=== PATIENT | female | born 1965 | race Caucasian/White ===

== ENCOUNTER 2022-06-10 11:00 | Outpatient (CLI) | payer OTHER, SELFPAY ==
--- NOTE | ~2022-06-10 | US_ITS ---
Duplex Sonography of the right extremity: Indication: Acute embolism Findings: Sagittal and transverse B-mode images as well as color-flow imaging were performed on the r ight femoral and popliteal veins. B-mode examination was done without and with compression in the tr ansverse plane. There is good visualization of the common femoral, proximal profunda femoral, superf icial femoral, greater saphenous, and popliteal veins. Normal flow was seen on color-flow imaging. N ormal compressibility was demonstrated. Visualized right calf veins are also patent. Impression: No evidence of deep vein thrombosis involving the right lower extremity. Reviewed, dictated and finalized at location M. Impression: No evidence of deep vein thrombosis involving the right lower extremity.
== END 2022-06-10 11:01 | disposition home or self-care (01) ==
PROVIDERS: PCP Nurse Practitioner Family; Visit Provider Family Medicine
DX: I82.409 Acute embolism and thrombosis of unspecified deep veins of unspecified lower extremity (principal); Z86.718 Personal history of other venous thrombosis and embolism
CPT/HCPCS: 93971

== ENCOUNTER 2024-06-08 08:38 | Outpatient (CLI) | payer OTHER, SELFPAY ==
--- OUTSIDE RECORDS SUMMARY | 2024-06-08 09:03 | XMS_ITS | Referral Summary ---
Author Organization [address] Address [address] [place] [address] Care Team Providers Care Assistant Professor Of Music Name Role Phone Cipriano Kwok MD Primary Care Provider [phone] Beni Guerrier MD Unavailable Milvia Aldrich MD Unavailable [phone] Encounters Date Type Department Care Team Description 05/12/2024 Telephone [facility] Primary Care at [address] [address] Cipriano Kwok MD Medical Question/Miscellaneous 05/12/2024 Orders Only [facility] Medical [facility] Primary Care at [address] [address] Cipriano Kwok MD Hypersomnolence (Primary Dx) 05/12/2024 10:15 AM CDT Office Visit [facility] Primary Care at [address] [address] Cipriano Kwok MD Hypersomnolence (Primary Dx) 05/06/2024 11:15 AM CDT Office Visit [facility] Oncology [facility] [place] [address] Beni Guerrier MD Malignant neoplasm of upper-inner quadrant of right breast in female, estrogen receptor positive (HCC) (Primary Dx) from Last 3 Months Allergies No known active allergies Medications Eliquis 5 mg tablet Take 1 tablet (5 mg total) by mouth 2 (two) times a day 01/17/2023 Active vitamin E acetate (VITAMIN E ORAL) Take by mouth Active BLACK COHOSH ORAL Take by mouth Active anastrozole (ARIMIDEX) 1 mg tabletIndicatio ns:Malignant neoplasm of upper-inner quadrant of right breast in female, estrogen receptor positive (HCC) Take 1 tablet (1 mg total) by mouth daily 30 tablet 11 02/25/2024 Active ezetimibe (ZETIA) 10 mg tablet TAKE 1 TABLET(10 MG) BY MOUTH DAILY 30 tablet 3 03/29/2024 Active venlafaxine XR (EFFEXOR-XR) 75 mg 24 hr capsuleIndicati ons:Vasomotor Symptoms associated with Menopause Take 1 capsule (75 mg total) by mouth daily 30 capsule 05/06/2024 Active Active Problems Problem Noted Date Diagnosed Date Encounter for follow-up exam ination after completed treatment for malignant neoplasm 05/30/2023 Personal history of malignant neoplasm of breast 05/30/2023 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 Class 2 obesity due to exces s calories without serious comorbidity with body mass index (BMI) of 39.0 to 39.9 in adult 01/21/2023 Assessment & Plan (01/23/2023 12:49 PM WOODWORK SALVAGE INSPECTOR): BMI Follow-up includes: nutrition counseling, exercise counseling, and education provided. Malignant neoplasm of upper- inner quadrant of right breast in female, estrogen receptor positive 11/05/2022 Assessment & Plan (01/21/2023 10:08 AM WOODWORK SALVAGE INSPECTOR): Per chart review -- Right breast multifocal invasive ductal carcinoma, cT1cN0. s/P RIGHT Partial Mastectomy with sentinel lymph node biopsy, pathologic T2 N0 Under care [facility] - Dr Bg Ying and Milvia Aldrich MD Ductal carcinoma in situ (DCIS) of right breast 10/22/2022 Assessment & Plan (01/21/2023 10:09 AM WOODWORK SALVAGE INSPECTOR): 12/25/22 s/P RIGHT Partial Mastectomy with sentinel lymph node biopsy, pathologic T2 N0 Encounter to establish care 10/22/2022 Assessment & Plan (10/22/2022 9:17 AM CDT): A(n) initial well visit to establish care has been performed today. Guy White is not up to date on screening tests. She is in need of Colon cancer screening and Cholesterol screening. She is not up to date on needed preventative vaccinations; She is in need of Tdap/Td, Influenza, Zoster, and Covid-19 (booster). We discussed healthy lifestyle habits, educational material has been given. Medications reviewed, changes documented as per the medical record and discussed with patient along with risks vs benefits. 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 More than three times a week 05/05/2024 How often do you get togethe r with friends or relatives? Never 05/05/2024 How often do you attend [facility] or spiritism services? 1 to 4 times per year 05/05/2024 Do you belong to any clubs o r organizations such as mu-ism groups, unions, fraternal or athletic groups, or school groups? No 05/05/2024 How often do you attend meet ings of the clubs or organizations you belong to? Never 05/05/2024 Are you , , di vorced, , never , or living with a partner? 05/05/2024 AUDIT-C Answer Date Recorded Q1: How often do you have a drink containing alc ohol? Monthly or less 10/22/2022 Q2: How many drinks containi ng alcohol do you have on a typical day when you are drinking? 1 or 2 10/22/2022 Q3: How often do you have si x or more drinks on one occasion? Less than monthly 10/22/2022 Overall Financial Resource Strain (CARDIA) Answe r Date Recorded How hard is it for you to pa y for the very basics like food, housing, medical care, and heating? Not very hard 05/05/2024 PHQ-2 Answer Date Recorded PHQ-2 Total Score (If total score is 3 or more points, staff should administer the PHQ-9) 0 05/12/2024 [facility] ional Health - Occupational Stress Questionnaire Answer Date Recorded Do you feel stress - tense, restless, nervous, or anxious, or unable to sleep at night because your mind is troubled all the time - these days? Only a little 05/05/2024 Exercise Vital Sign Answer Date Recorde d On average, how many days pe r week do you engage in moderate to strenuous exercise (like a brisk walk)? 2 days 05/05/2024 On average, how many minutes do you engage in exercise at this level? 10 min 05/05/2024 Hunger Vital Sign Answer Date Recorded Within the past 12 months, y ou worried that your food would run out before you got the money to buy more. Never true 05/06/19 25 Within the past 12 months, t he food you bought just didn't last and you didn't have money to get more. Never true 05/05/2024 PRAPARE - Transportation Answer Date Re corded In the past 12 months, has l ack of transportation kept you from medical appointments or from getting medications? No 04/11 In the past 12 months, has l ack of transportation kept you from meetings, work, or from getting things needed for daily living? No 05/05/2024 Housing Stability Vital Sign Answer Arian e Recorded In the last 12 months, was t here a time when you were not able to pay the mortgage or rent on time? No 05/05/2024 Number of Times Moved in the Last Year Not on fi le 05/05/2024 Homeless in the Last Year Not on file 2024 Personal Safety Answer Date Recorded Have you ever been in or are you currently in a harmful physical or emotional relationship or is someone making you feel afraid or unsafe? Denies 12/25/2022 Comments No Sex and Gender Information Value Date Recorded Sex Assigned at Not on file Legal Sex Female 1:25 AM WOODWORK SALVAGE INSPECTOR Gender Identity Not on file Sexual Orientation Not on file Last Filed Vital Signs Vital Sign Reading Time Taken Comments Blood Pressure 130/84 05/12/2024 10:29 AM CDT Pulse 65 05/12/2024 10:29 AM CDT Temperature 36.1 C (96.9 F) 05/12/2024 10:29 AM CDT Respiratory Rate 16 05/12/2024 10:29 AM CDT Oxygen Saturation 98% 05/12/2024 10:29 AM CDT Inhaled Oxygen Concentration - - Weight 103.4 kg (228 lb) 05/12/2024 10:29 AM CDT Height 158.8 cm (5' 2.5 ) 05/12/2024 10:29 AM CD T Body Mass Index 41.04 05/12/2024 10:29 AM CDT Plan of Treatment Not on file Medical Devices Implanted Type Area Accounting Systems Analyst Device Identifier Shelf Expiration Date Model / Serial / Lot Well Drill Operator Technologies Cromwell 20ga 7.5cm 2 Part Stabilizer Repositionable Depth Man [id number] - [id number] Implanted:Qty: 1 on 12/25/2022 at [facility] Right: Breast Well [employer] [id number] 06/26/2027 [id number] / / [id number] Bard Peripheral Vascular Ultraclip Bard 17ga 10cm 2 Trigger Permanent Ultrasound [id number] - [id number] Implanted:Qty: 1 on 10/16/2022 by Tamiko Ledesma MD at [facility] Right: Breast Bard Peripheral Vascular [id number] / / CodeStreet Marker Tissue 1 Year Visibility Butterfly Titanium Hydrogel Hydromark 15ga 4009-03-27-T4 - [id number] Implanted:Qty: 1 on 10/16/2022 by Tamiko Ledesma MD at [facility] Right: Breast [employer] [id number] 4009-03-1 5-T4 / / [id number] Well Drill Operator Technologies Cromwell 20ga 5cm Reposition J Curve Wire Centimeter Man Stabilizer [id number] - [id number] Implanted:Qty: 1 on 12/25/2022 at [facility] [employer] Marker [id number] 07/24/2027 [id number] / / [id number] Description:To be removed du ring surgery today [employer]Street Mammostar Tissue Barbell Marker Breast Biopsy Beta Glucan Ceramic [id number] - [id number] Implanted:Qty: 1 on 08/20/2023 at [facility] [employer] [id number] 03/08/2028 [id number] / / [id number] Procedures Procedure Name Priority Date/Time Associated Diagnosis Comments DIAGNOSTIC MAMMOGRAM BILATERAL W GEOFFREY Schedule Routine, Read Routine (OP Routine) 08/04/2023 8:58 AM CDT Malignant neoplasm of upper-inner quadrant of right breast in female, estrogen receptor positive (HCC) HEPATITIS C ANTIBODY Routine 10/22/2022 9:34 AM CDT Encounter for hepatitis C screening test for low risk patient from Last 3 Months or Most Recently Relevant to Health Maintenance Results * (ABNORMAL) Diagnostic Mammogram Bilateral W Geoffrey (08/04/2023 8:58 AM CDT) Anatomical Region Laterality Modality Breast Bilateral Mammography 08/04/2023 9:32 AM CDT Impressions 08/04/2023 9:32 AM CDT 1. Group of microcalcifications located in the central superior right breast are indeterminate. Recommend stereotactic biopsy. 2. Lumpectomy changes in the right breast are benign. 3. Management of any palpable abnormality should be based on clinical grounds. These findings were discussed with the patient and all her questions were answered. The patient will follow-up with our nurse navigator who will assist in further management OVERALL FINAL ASSESSMENT: SUSPICIOUS. BI-RADS Category 4A: Low suspicion for malignancy. RECOMMENDATION: Stereotactic biopsy of group of microcalcifications in the right superior central breast. Electronically signed by: Lynn Hermosillo M.D. Narrative 08/04/2023 9:32 AM CDT EXAMINATION: BILATERAL DIGITAL DIAGNOSTIC MAMMOGRAM INCLUDING CAD AND BILATERAL DIGITAL BREAST TOMOSYNTHESIS HISTORY: Annual mammogram. Right lumpectomy in December 2022 COMPARISON: Multiple prior exams dating back to 07/22/2022 TECHNIQUE: Full field digital mammographic views of BOTH breasts were performed, including computer aided detection (CAD) and BILATERAL digital breast tomosynthesis (DBT). BREAST PARENCHYMAL COMPOSITION: There are scattered areas of fibroglandular density. MAMMOGRAM FINDINGS: Right breast: There are lumpectomy changes in the upper inner right breast. There is a group of microcalcifications located in the central superior right breast. Recommend stereotactic biopsy. Left breast: No suspicious microcalcifications masses or areas of architectural distortion. us Elvira Garcia MD PhD IMG MAMMO PROCEDURES Final Result * Hepatitis C antibody Blood (10/22/2022 9:34 AM CDT) Hep C Ab Nonreactive Nonreactive Comment: Interpretive Data Nonreactive: Antibodies to HCV not detected. Does NOT exclude the possibility of recent exposure to HCV. Equivocal: Equivocal for HCV antibodies. Supplemental molecular testing will be automatically performed to determine infection status in accordance with current CDC screening recommendations. Reactive: Positive for HCV antibodies. This may represent current or past HCV infection. Supplemental molecular testing will be automatically performed to determine current infection status in accordance with current CDC screening recommendations. Interpretive data was last revised on 2019. Blood 10/22/2022 9:34 AM CDT 10/22/2022 2:15 PM CDT us Cipriano Kwok MD LAB MICROBIOLOGY - GENERAL [place] [id number] [address] Department [place] [address] from Last 3 Months or Most Recently Relevant to Health Maintenance Insurance [facility] CHOICE [facility]US [facility] CHOICE PLUS Care Teams Assistant Professor Of Music Relationship Specialty Start Date End Date Cipriano Kwok MD [address] [place] [address] PCP - General Family Medicine 10/07/22 Beni Guerrier MD [address] [place] [address] Consulting Physician Medical Oncology 10/25/22 Milvia Aldrich MD [address] [place] [address] Radiation Oncologist Radiation Oncology 03/20/23
--- OUTSIDE RECORDS SUMMARY | 2024-06-08 09:03 | XMS_ITS | Encounter Summary ---
Author Organization [facility] Address [facility] [place] [address] Care Team Providers Care Corporate Scheduler Name Role Phone None, Provider Primary Care Provider Carson Kruger MD Primary Care Provider [phone] Encounter Details Date Type Department Care Team (Late st Contact Info) Description 04/26/2013 Abstract [facility] CONVERSION [address] [place] [address] , Generic Conversion, Social History Tobacco Use Types Packs/Day Years Used Date Smoking Tobacco: Never Assessed Comments Unknown Sex and Gender Information Value Date Recorded Sex Assigned at Not on file Legal Sex Female 7:02 PM CDT Gender Identity Not on file Sexual Orientation Not on file documented as of this encounter Plan of Treatment Not on file documented as of this encounter Visit Diagnoses Not on filedocumented in this encounter Care Teams Corporate Scheduler Relationship Specialty Start Date End Date None, Provider, PCP - General 05/21/20 07/21/22 Carson Shaw MD [address] [place] [address] PCP - General FAMILY PRACTICE 07/22/22 documented as of this encounter
--- OUTSIDE RECORDS SUMMARY | 2024-06-08 09:03 | XMS_ITS | Clinical Summary ---
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 Class 2 obesity due to exces s calories without serious comorbidity with body mass index (BMI) of 39.0 to 39.9 in adult 01/21/2023 Assessment & Plan (01/23/2023 12:49 PM CELL REPAIRER): BMI Follow-up includes: nutrition counseling, exercise counseling, and education provided. Malignant neoplasm of upper- inner quadrant of right breast in female, estrogen receptor positive 11/05/2022 Assessment & Plan (01/21/2023 10:08 AM CELL REPAIRER): Per chart review -- Right breast multifocal invasive ductal carcinoma, cT1cN0. 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 Encounters Date Type Department Care Team Description 05/12/2024 10:15 AM CDT Office Visit [facility] Medical [facility] Primary Care at [address] [address] Cipriano Kwok MD Hypersomnolence (Primary Dx) 05/12/2024 Telephone [facility] Primary Care at [address] [address] Cipriano Kwok MD Medical Question/Miscellaneous 05/12/2024 Orders Only [facility] Primary Care at [address] [address] Cipriano Kwok MD Hypersomnolence (Primary Dx) 05/06/2024 11:15 AM CDT Office Visit [facility] Oncology [facility] [place] [address] Beni Guerrier MD Malignant neoplasm of upper-inner quadrant of right breast in female, estrogen receptor positive (HCC) (Primary Dx) from Last 3 Months Immunizations Immunization Administration Dates Next Due Influenza, Quadrivalent, Spl it, Preservative Free, Intramuscular 10/22/2022 Influenza, Unspecified 02/10/2022(Deferred: Emy ent Refused) Tdap 10/22/2022 Surgical History Surgery Date Site/Laterality Comments BREAST BIOPSY 10/16/2022 Right VARICOSE VEIN SURGERY 02/10/1997 - 02/09/1998 Bilateral FRACTURE SURGERY Left HYSTERECTOMY BLADDER SURGERY Bladder lift KNEE ARTHROSCOPY W/ LATERAL RELEASE BREAST BIOPSY 08/20/2023 Right Medical History Medical History Date Comments Varicose vein of leg Cancer (HCC) Nov 02 Family History Medical History Relation Name Comments Atrial fibrillation Brother 1 Atrial fibrillation Brother 2 Clotting disorder Brother 3 Сергей Hearing loss Brother 3 Сергей HPV Daughter Lung cancer Father Clotting disorder Mother Lollyrupa Caraballo Hearing loss Mother Lolly Caraballo No Known Problems Sister Relation Name Status Comments Brother 1 Alive Brother 2 Alive Brother 3 Сергей Daughter Father Mother Lolly Caraballo Alive Sister Alive Social History Tobacco Use Types Packs/Day Years [...] Never 05/05/2024 How often do you attend chur ch or scientology services? 1 to 4 times per year 05/05/2024 Do you belong to any clubs o r organizations such as samaritan groups, unions, fraternal or athletic groups, or [...] staff should administer the PHQ-9) 0 05/12/2024 [facility] of Occupat ional Health - Occupational Stress [...] on file Legal Sex Female 1:25 AM CELL REPAIRER Gender Identity Not on file Sexual Orientation Not on file Obstetrics History Last Filed Vital Signs Vital Sign Reading [...] 05/12/2024 10:29 AM CDT Plan of Treatment Health Maintenance Due Date Last Done Comments Hepatitis B Screening 07/15/1981 Pneumococcal vaccine <65 (1 of 2 - PCV) 07/15/1982 Zoster Vaccine (1 of 2) 07/15/1982 Regular Well Visit/Exam 18-64 10/23/2023 10/22/2022 Breast Cancer Screening-Mammogram 08/03/2024 08/04/2023, 08/28/2022, 07/22/2022 Influenza Vaccine (Season Ended) 2024 10/23/19 23 Depression Screening 05/12/2025 05/12/2024, 05/06/2024, 07/24/2023, Additional history exists Colon Cancer Screening-Colonoscopy 06/30/2025 DTaP/Tdap/Td Vaccine (2 - Td or Tdap) 10/22/2032 10/22/2022 Covid-19 Vaccine Discontinued 04/29/2021, , 09/02/2020 Hepatitis C Screening Completed 10/22/2022 Medical Devices Implanted Type Area Dry Mixer Device Identifier Shelf Expiration Date Model / Serial / Lot Edge Banding Machine [employer] Sullivan 20ga 7.5cm 2 Part Stabilizer Repositionable Depth Man [id number] - [id number] Implanted:Qty: 1 on 12/25/2022 at [facility] Right: Breast Edge Banding Machine [employer] [id number] 06/26/2027 [id number] / / [id number] Bard Peripheral Vascular Ultraclip Bard 17ga 10cm 2 Trigger Permanent Ultrasound [id number] - [id number] Implanted:Qty: 1 on 10/16/2022 by Tamiko Ledesma MD at [facility] Right: Breast Bard Peripheral Vascular [id number] / / [employer] Marker Tissue 1 Year Visibility Butterfly Titanium Hydrogel Hydromark 15ga 4009-03-27-T4 - [id number] Implanted:Qty: 1 on 10/16/2022 by Tamiko Ledesma MD at [facility] Right: Breast [employer] [id number] 4009-03-1 5-T4 / / [id number] [employer] Sullivan 20ga 5cm Reposition J Curve Wire Centimeter Man Stabilizer [id number] - [id number] Implanted:Qty: 1 on 12/25/2022 at [facility] [place] [id number] 07/24/2027 [id number] / / [id number] Description:To be removed du ring surgery today [employer] Mammostar Tissue Barbell Marker Breast Biopsy Beta Glucan Ceramic [id number] - [id number] Implanted:Qty: 1 on 08/20/2023 at [facility] [employer] [id number] 03/08/2028 [id number] / / [id number] Procedures Procedure Name Priority Date/Time Associated Diagnosis [...] LAB MICROBIOLOGY - GENERAL ORDERABLES Final Result [facility] [address] Department [place] [address] from Last 3 Months or Most Recently Relevant to Health Maintenance Insurance [facility] CHOICE PLUS [facility] HMO/PPO Address: [address] [place] [address] [facility] CHOICE PLUS [facility] HMO/PPO Address: [address] [place] [address] Care Teams Link Assembler Relationship Specialty Start Date End Date Cipriano Kwok MD [address] [address] PCP - General Family Medicine 10/07/22 Beni Guerrier MD [address] [place] [address] Consulting Physician Medical Oncology 10/25/22 Milvia Aldrich MD [address] [place] [address] Radiation Oncologist Radiation Oncology 03/20/23
--- OUTSIDE RECORDS SUMMARY | 2024-06-08 09:03 | XMS_ITS | CONTINUITY OF CARE DOCUMENT ---
Author Name laura kirklizette Address Unknown Organization [facility] Address [address] [place] [address] Phone [phone] Care Team Providers Care Violin Maker Hand Name Role Phone Arian DE PAZ, Christoph Unavailable [phone] FORTINO DE PAZ, AGUEDA Unavailable [phone] AGUEDA FREITAS MD Unavailable PROBLEMS Condition Status Date Provider Notes Cardiology examination completed - Christoph Don MD Venous insufficiency active Angelina A Steel e CREDIT AND LOAN COLLECTIONS SUPERVISOR Hypercholesterolemia active Angelina A Steel e CREDIT AND LOAN COLLECTIONS SUPERVISOR DVT active Christoph Don MD HTN essential active Christoph Don MD ENCOUNTERS Date Type Provider Location Encounter Diag nosis 3 - 4 In-person encounter Office Visit Christoph Germain Office 4 - 8 In-person encounter Office Visit Christoph Germain Office 0 - 5 In-person encounter Office Visit Christoph Daniel Office Cardiology examinationDVTHTN essential 0 - 1 In-person encounter Office Visit Christoph Daniel [facility] Venous insufficiencyHypercholesterolemia VITAL SIGNS Date Observation Value Provider Body Mass Index (Ratio) 41.51 kg/m2 Jewels Don MD blood pressure, diastolic 86 mm[Hg] Li nkLogic blood pressure, systolic 135 mm[Hg] Tati Colemanogic blood pressure, diastolic 86 mm[Hg] Sarahi boyle Ruple blood pressure, systolic 135 mm[Hg] Aislinn durand Ruple blood pressure, cuff size regular Sarahi boyle Ruple oxygen saturation, oximetry 99 % Comfort Ruple pulse rate 82 /min Comfort Ruple weight E&M 227 [lb_av] Comfort Ruple height E&M 62 [in_i] Comfort Ruple Body Mass Index (Ratio) 41.70 kg/m2 Sund tahira Don MD blood pressure, cuff size regular Ke rri Gruenenfelder blood pressure, diastolic 80 mm[Hg] Ke rri Gruenenfelder blood pressure, systolic 126 mm[Hg] Lucy ri Mendozauenenfelder oxygen saturation, oximetry 96 % Angella Grnatenenfelder respiratory rate E&M 12 /min Angella G ruenenfelder pulse rate 68 /min Angella Gruenenfe lder weight E&M 228 [lb_av] Angella Gruenenfe lder height E&M 62 [in_i] Angella Busternenfe lder Body Mass Index (Ratio) 40.49 kg/m2 Sund tahira Don MD pulse rate 53 /min Jennifer Richardson blood pressure, diastolic 93 mm[Hg] Em elsie Richardson blood pressure, systolic 142 mm[Hg] Elba ly Richardson oxygen saturation, oximetry 99 % Jennifer Richardson weight E&M 221.4 [lb_av] Jennifer Richardson blood pressure, cuff size regular Em elsie Richardson height E&M 62 [in_i] Jennifer Richardson Body Mass Index (Ratio) 40.60 kg/m2 eeelham Don MD blood pressure, diastolic 84 mm[Hg] Li nkLogic blood pressure, systolic 147 mm[Hg] Tati kLogic blood pressure, diastolic 84 mm[Hg] Dolly lebron Rico blood pressure, systolic 147 mm[Hg] Otis chiu Rico oxygen saturation, oximetry 96 % Mariana Gómez pulse rate 90 /min Mariana rodriguez weight E&M 222 [lb_av] Mariana rodriguez height E&M 62 [in_i] Mariana rodriguez respiratory rate E&M 16 /min Karrie Gómez blood pressure, cuff size large Dolly Gómez HISTORY OF MEDICATION USE Medication Status Instructions Dates Provider Indications Com ments Eliquis 5 mg tablet active TAKE 1 TABLET BY MOUTH TWICE DAILY Milvia Rushijen anastrozole 1 mg tablet active take 1 pill a day Angella Kaur Eliquis 5 mg tablet completed Take 1 tablet by mouth twice a day - Milvia Rushijen ezetimibe 10 mg tablet active Take 1 tablet by mouth once daily Angella Kaur SOCIAL HISTORY Date Observation Value Provider smoking status Never smoker Jennifer Richardson smoking status Never smoker Mariana Fields and INSURANCE PROVIDERS Payer name Policy type / Coverage type [place] [employer] party ID [facility] Other [id number] ADVANCE DIRECTIVES Name Date DISCUSSED - NO DECISION MADE TREATMENT PLAN Date Name Performer Cardiology:She c/o P ain behing left knee and this is bothering her more now. Pain same as what happened with RLE and she thinks she may have a dvt in rle. Has been on oac. Also c/o white coloration in rle toes. She states that it hurts to flex knee and happened after nav[place] trip Christophelham Don MD Cardiology: H er updated medication list for this problem includes: Ezetimibe 10 Mg Tablet (Ezetimibe) ..... Take 1 tablet by mouth once daily Arian DE PAZ Cardiology:resolved r emains on oac Arian DE PAZ Cardiology:wc Arian DE PAZ Cardiology: O ff sttains at thiss time f elt legs got worse on statins C an check CACS to see if she needs statins Angelina Encarnacion NP Cardiology: H er Doppler showed occlusive DVT in the R PTV, bilateral GSV. No DVT in LLE. Had LE and blateral SSV CVI. S he was started on eliquis 5mg BID. U sing compressions tockings repeat doppler now shows no DVT (08/18/2023) Angelina Encarnacion NP Cardiology: B P today: 126/80 P rior BP: 142/93 (01/29/2023) Angelina Encarnacion NP Cardiology: h as hx of vein stripping bilaterally n ow with pain and swelling in the right > Left - w as diagnosed with DVT and has now been on eliquis of 6 months, and repeat doppler shows no DVT and now ready to see if she can be evaluated for vein treatment. Continues to wear her compression stockings. will treat her Right GSV with varithena if she decides that is what she wants to do. Angelina Encarnacion NP Cardiology:She will start monitoringat home Arian DE PAZ Cardiology:Off sttai ns at thiss time f elt legs got worse on statins C an check CACS to see if she needs statins Arian DE PAZ Cardiology:Her Doppl er showed occlusive DVT in the R PTV, bilateral GSV. No DVT in LLE. Had LE and blateral SSV CVI. S he was started on eliquis 5mg BID. U sing compressions tockings w ill follow up in 6 mo with doppler Arian DE PAZ Cardiology:no longer on statin therapy o n ezetimibe Arian DE PAZ Cardiology:has hx of vein stripping bilaterally n ow with pain and swelling in the right > Left Arian DE PAZ Date Name Venous Doppler Unila teral LLE CT, Coronary Calcium Score Venous Doppler Bilat eral LE - Reflux Venous Doppler Bilat eral LE - Reflux HISTORY OF PROCEDURES Procedure Date Procedure Name Provider Procedure Notes S tatus Complex e/m visit add on Arian DE PAZ completed EKG Arian DE PAZ completed Complex e/m visit add on Arian DE PAZ completed EKG Arian DE PAZ completed
--- OUTSIDE RECORDS SUMMARY | 2024-06-08 09:03 | XMS_ITS | Encounter Summary ---
Author Organization [facility] Healthcare Address [address] [place] [address] Care Team Providers Care Computerized Mill Mill Recorder Name Role Phone Cipriano Kwok MD Primary Care Provider Beni Guerrier MD Unavailable Milvia Aldrich MD Unavailable [phone] Reason for Visit * Reason Onset Date Comments Medical Question/Miscellaneous 05/12/2024 Encounter Details Date Type Department Care Team (Late st Contact Info) Description 05/12/[address] [facility] Medical Group Primary Care at [address] [id number] Cipriano Kwok MD [address] [place] [id number] Medical Question/Miscellaneous Social History Tobacco Use Types Packs/Day Years Used Date Smoking Tobacco: Never Passive Smoke Exposure: Never Smokeless Tobacco: Never Social Connection and Isolat ion Panel [NHANES] Answer Date Recorded In a typical week, how many times do you talk on the phone with family, friends, or neighbors? More than three times a week 05/05/2024 How often do you get togethe r with friends or relatives? Never 05/05/2024 How often do you attend chur or congregational services? 1 to 4 times per year 05/05/2024 Do you belong to any clubs o r organizations such as taoism groups, unions, fraternal or athletic groups, or [...] staff should administer the PHQ-9) 0 05/12/2024 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 * Telephone Encounter - Astrid Aaron - 05/12/2024 2:37 PM CDT Medical Question/Miscellaneous Caller???s Concern: Zulay with [facility], called needing the office visit note that discusses the patient's sleep issues and the authorization. Please fax to: [phone] Does message need to be routed? Yes-Action Needed documented in this encounter Plan of Treatment Not on file documented as of this encounter Visit Diagnoses Not on filedocumented in this encounter Care Teams Computerized Mill Mill Recorder Relationship Specialty Start Date End Date Cipriano Kwok MD [address] [facility] [address] [place] [address] PCP - General Family Medicine 10/07/22 Beni Guerrier MD [address] [place] [address] Consulting Physician Medical Oncology 10/25/22 Milvia Aldrich MD [address] [facility] [place] [address] Radiation Oncologist Radiation Oncology 03/20/23 documented as of this encounter
--- OUTSIDE RECORDS SUMMARY | 2024-06-08 09:03 | XMS_ITS ---
Author Organization [facility] [address] Address [address] [place] [id number] Care Team Providers Care Unit Control Worker Name Role Phone Cipriano Kwok MD Primary Care Provider Beni Guerrier MD Unavailable Milvia Aldrich MD Unavailable Active Problems Problem Noted Date Diagnosed Date Encounter for follow-up exam ination after completed treatment for malignant neoplasm 05/30/2023 Personal history of malignant neoplasm of breast 05/30/2023 Personal history of irradiation 05/30/2023 prison current use of aromatase inhibitor Hyperlipidemia, unspecified 01/21/2023 Pre-diabetes 01/21/2023 Morbid (severe) obesity due to excess calories 1 03/24/2022 Assessment & Plan (03/24/2023 12:59 PM INDUSTRIAL EDITOR): BMI Follow-up includes: education provided. Class 2 obesity due to exces s calories without serious comorbidity with body mass index (BMI) of 39.0 to 39.9 in adult 01/21/2023 Assessment & Plan (01/23/2023 12:49 PM INDUSTRIAL EDITOR): BMI Follow-up includes: nutrition counseling, exercise counseling, and education provided. Malignant neoplasm of upper- inner quadrant of right breast in female, estrogen receptor positive 11/05/2022 Assessment & Plan (01/21/2023 10:08 AM INDUSTRIAL EDITOR): Per chart review -- Right breast multifocal invasive ductal carcinoma, cT1cN0. 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 Past Treatment and Therapy Plans No past plan information found. Radiation Treatments * Course [id number]/18/2023 - 04/14/2023 Treatment Period Energy Fraction Dose Fractions Total Dose Plans Planned RT BREAST 03/18/2023 - 04/14/2023 266 16 / 4,256 RT BREAST [facility] 04/09/2023 - 04/14/2023 250 4 / 1,000 Reference Points Delivered R BRST BST_1000 04/09/2023 - 04/14/2023 1,000 RT [id number]_[id number] 03/18/2023 - 04/14/2023 4,477
--- OUTSIDE RECORDS SUMMARY | 2024-06-08 09:03 | XMS_ITS | Clinical Summary ---
Author Organization [facility] Address [facility] [place] [address] Care Team Providers Care Technical Business Analyst Name Role Phone Carson Shaw MD Primary Care Provider [phone] Medications atorvastatin (LIPITOR) 20 MG tablet Take 1 tablet (20 mg total) by mouth daily. 07/24/2022 Active Active Problems Problem Noted Date Diagnosed Date History of deep vein thrombosis of lower extremi ty 05/29/2013 Right ankle pain 05/29/2013 Varicose veins of both lower extremities 014 Acute sinusitis 03/12/2013 Hearing loss 12/18/2012 Weight gain 06/30/2012 Cough 04/27/2012 Thromboembolic disorder ([facility]) 2011 Immunizations Immunization Administration Dates Next Due MODERNA COVID-19 (12+) MRNA, LNP-S, PF, 100 MCG/ 0.5 ML DOSE 10/01/2020,09/02/2020 MODERNA COVID-19 ([facility]), MRNA, LNP-S, PF, 50 MCG/ 0.25 ML DOSE 04/29/2021 Family History Medical History Relation Comments Breast Cancer Neg Hx Social History Tobacco Use Types Packs/Day Years Used Date Smoking Tobacco: Never Assessed Comments Unknown Sex and Gender Information Value Date Recorded Sex Assigned at Not on file Legal Sex Female 7:02 PM CDT Gender Identity Not on file Sexual Orientation Not on file Last Filed Vital Signs Vital Sign Reading Time Taken Comments Blood Pressure 122/80 09/04/2022 12:47 PM CDT Pulse 76 09/04/2022 12:47 PM CDT Temperature - - Respiratory Rate - - Oxygen Saturation - - Inhaled Oxygen Concentration - - Weight 101.3 kg (223 lb 6.4 oz) 023 12:47 PM CDT Height 160 cm (5' 3 ) 09/04/2022 12:47 PM CDT Body Mass Index 39.57 09/04/2022 12:47 PM CDT Plan of Treatment Health Maintenance Due Date Last Done Comments Cervical Cancer Screening Pa p Smear (Age 30 to 64) Every 3 Years 1963 Colorectal Cancer Screening Colonoscopy (10 Years) 1963 Annual Physical 07/15/1966 Hepatitis C 07/15/1981 DTaP, Tdap and Td Vaccines ( 1 - Tdap) 07/15/1982 Cervical Cancer Screening Pa p with HPV Testing (Age 30 to 64) Every 5 Years 07/15/1993 Cervical Cancer Screening wi th HPV 07/15/1993 Pneumococcal Vaccine: 50+ Years (1 of 1 - PCV) 07/15/2013 Zoster Vaccines (1 of 2) 07/15/2013 COVID-19 Vaccine (4 - 2023-2 5 season) 2023 04/29/2021, 10/01/2020, 09/02/2020 Mammogram Screening 08/28/2024 08/28/2022, 07/22/2022 RSV Immunization or 60+ Years (1 - 1-dose 75+ series) 07/15/2038 Meningococcal B Vaccine Aged Out No l onger eligible based on patient's age to complete this topic Meningococcal Vaccine Aged Out No lukas raquel eligible based on patient's age to complete this topic RSV Immunizations Under 20 Months Aged Out No longer eligible b ased on patient's age to complete this topic Procedures Procedure Name Priority Date/Time Associated Diagnosis Comments MG DIAG ADD VIEW W YOLI RT Routine 08/28/2022 9:41 AM CDT Unspecified lump in the right breast, unspecified quadrant Other abnormal and inconclusive findings on diagnostic imaging of breast from Last 3 Months or Most Recently Relevant to Health Maintenance Results * MG DIAG ADD VIEW W YOLI RT (08/28/2022 9:41 AM CDT) Anatomical Region Laterality Modality Breast Right Mammography 08/28/2022 10:3 0 AM CDT Narrative 08/28/2022 10:34 AM CDT Examination: Digital right diagnostic mammogram with 3-D tomosynthesis and right breast ultrasound. [id number] Exam Date/Time: 08/28/2022 8:55 AM Reason For Exam: abnormal mammogram Comparison: July 22, 2022. Technique: Digital diagnostic mammography of the right breast was performed in addition to 3-D Tomosynthesis technique. This study was read with the assistance of a computer-aided detection system. Grayscale and color Doppler images of the right breast. Tissue density: There are scattered areas of fibroglandular density. Findings: There are 2 masses that are present within the right breast. These both persist after compression is applied. Subsequent right breast ultrasound is performed. At the 1:00 position 8 cm from the nipple there is a 1.7 x 1.3 x 1 cm irregularly-shaped hypoechoic mass that is present. This concerning for a neoplastic lesion. At the 2:00 position 11 cm from the nipple there is a small mass that is present. This is irregularly shaped.. This measures 0.6 x 0.6 x 0.3 cm. This is concerning for neoplastic lesion. Further evaluation of both of these lesions is recommended with tissue sampling. Sonographic evaluation of the right axilla is performed. There is a lymph node measuring 2 x 1.1 x 1.8 cm. This has normal morphology with a fatty mesfin. The cortex is not thickened. An additional lymph node is present measuring 1.3 x 1 x 1.6 cm. This has normal morphology and fatty mesfin. Cortex is not thickened. A third lymph node is present measuring 3.2 x 1.4 x 1.7. This has normal morphology with a fatty mesfin and no cortical thickening. ===== IMPRESSION: ===== 1. 2 right breast masses are present. Further evaluation with tissue sampling is recommended. 2. Morphologically normal lymph nodes are present in the right axilla. Assessment: ACR BI-RADS 5 - HIGHLY SUGGESTIVE OF MALIGNANCY (Greater than 95% Likelihood). APPROPRIATE ACTIONS SHOULD BE TAKEN. Recommendation: 1:Biopsy should be considered Right Comments: After biopsy is positive for neoplasm breast staging MRI may be of use in this patient. Ordered By: POOJA MAYFIELD Interpreted By: Kory Thompson MD, 08/28/2022 10:30 AM us Pooja Mayfield ELECTRICAL CONTRACTOR MAMMO Final Resul t from Last 3 Months or Most Recently Relevant to Health Maintenance Insurance [facility] Care Teams Technical Business Analyst Relationship Specialty Start Date End Date Carson Shaw MD [address] [place] [id number] PCP - General FAMILY PRACTICE 07/22/22
[2024-06-15 15:56] VITALS: BMI 40.5
--- NOTE | 2024-06-15 15:56 | P.SLEEP_ITS ---
Sleep Study - Home Unattended Date of Study: 06/08/24 Ordering Provider: Cipriano Kwok, Interpreting Provider: Sarina Pizano DO Home Sleep Study Type: Watch PAT Height: 1.59 m Weight: 102.058 kg Body Mass Index: 40.5 Neck Circumference (inches): 16 Scuddy: 0 Reason for Sleep Study snoring Sleep History The patient is a 58-year-old female that had a sleep study ordered for evaluation of sleep apnea. The patient admits to snoring loudly, excessive daytime sleepiness and trouble maintaining sleep. She denies having interruptions in breathing while asleep. She does choke or gasp at night. She denies having trouble breathing on her back. She does up morning headaches. She does have a dry or sore mouth/ throat in the morning. She denies nocturnal heartburn. She denies nocturia. She denies having trouble falling asleep. She does have trouble staying asleep. She does have difficulty returning to sleep if she wakes up too early. She denies any hypnotic or sedative use. She denies feeling anxious about sleep. She does feel tired or sleepy during the day. She does feel tired in the morning. She does have the urge to fall asleep during the day. She denies feeling drowsy while driving. She denies sleep paralysis, cataplexy and hypnagogic/ hypnopompic hallucinations. She does clench or grind her teeth. She does kick or jerk her legs excessively. She does not have a restless feeling in her legs. She goes to bed at 9:30 p.m. every day. It takes her 30 minutes to fall asleep. She gets 6 hours of sleep every night. Her sleep is somewhat restorative on days off. She denies taking any planned naps. She denies dream enactment behavior. She denies sleep walking. She denies consuming any caffeinated beverages throughout the day. She denies tobacco and alcohol use. She denies exercising on a regular basis. [facility] Past Medical History Medical History Claudication Hx of deep venous thrombosis DVT (deep venous thrombosis) Allergies Surgical History Surgical History H/O hand surgery H/O: hysterectomy (2008) Family History Family History Father Cancer Mother Atrial fibrillation Sibling Atrial fibrillation Social History Social History Smoking status: Unknown if ever smoked Alcohol intake: current Alcohol use details: 1 per month; beer/wine Substance use: never Substance use type: does not use Living arrangements: with family Occupation/Education: occupation Additional occupation/education comments: [place] at [employer] Medications Home Medications ?Medication ?Instructions ?Recorded ?Confirmed ?Type atorvastatin 20 mg tablet 20 mg PO DAILY #30 tabs 06/10/22 06/10/22 Rx Sleep Procedure The sleep study was completed using eco4cloudT a technically adequate device with seven channels: peripheral arterial tone, actigraphy, body position, snore, respiratory movement, pulse oximetry, sleep staging, and heart rate. Prior to using the device, the patient received verbal and written instructions for its application and was provided with the help desk phone number for additional telephonic instruction with 24-hour availability of qualified personnel to answer questions. The study was scored using CMS guidelines. Sleep Architecture The total recording time is 4 hrs, 12 min. The total sleep time is 3 hrs, 26 min. Sleep latency is 24 minutes. REM latency is 173 minutes. The patient had 13 episodes of waking. Sleep architecture shows 4.4% deep sleep, 91.0% light sleep, and (as % Total Sleep Time) showed NREM (Light 91.0%; Deep 4.4%), and a 4.6% stage REM. The patient spent 8.2% of total sleep time in the supine position. Sleep efficiency was 81.75. Respiratory Analysis The overall AHI (pAHI 4%:) is 48.0. The overall AHI (pAHI 3%:) is 58.8. The central AHI is 0.3. The AHI was N/A in NREM and N/A in REM sleep. The AHI was 74.1 in Supine and 57.5 in Non-supine sleep. Percent of Aditya Ambrosio respirations is 19.6. Oximetry Data The oxygen desaturation index (KARMA 4%:) is 47.4. The mean saturation is 94%, and the lowest saturation is 86%. Time spent with saturation < 88% is 0.9 minutes. Snoring Profile Snoring average intensity is 50 dB. The patient snored above 45 decibels for 118.3 minutes, 57.4% of sleep time. Cardiac Profile The average pulse rate is 67 beats per minutes. The lowest pulse rate is 49 bpm. The highest pulse rate reported is 107 bpm. Suspected Afib total duration is 0:0 0:54, (h:m:sec). The longest Afibevent duration is 0:00:45. A suspected arrhythmia flagged in the sleep report does not necessarily imply an arrhythmia condition is present, but rather suggests that further investigation should be considered. A-Fib events < 60 seconds may be artifact. Premature beats occur 1.4 per minute. Assessment and Plan Assessment and Plan (1) SHAW (obstructive sleep apnea): Code(s): G47.33 - Obstructive sleep apnea (adult) (pediatric) Status: Acute Assessment and Plan: The patient had an overall AHI of 48.0 with desaturation down to 86%. This is consistent with severe sleep apnea. I recommend that the patient have a CPAP titration study with the use of a hypnotic to ensure we obtain enough sleep data and find an optimal pressure setting to resolve her sleep apnea. Data The data obtained during this sleep study is adequate for interpretation. Certification This sleep study has been reviewed by a board certified sleep medicine physician.
== END 2024-06-11 15:04 | disposition home or self-care (01) ==
LOC: ANHCSM 08:41
PROVIDERS: PCP Nurse Practitioner Family; Visit Provider Family Medicine
DX: G47.10 Hypersomnia, unspecified (principal); G47.33 Obstructive sleep apnea (adult) (pediatric)
CPT/HCPCS: 95800